=== PATIENT | male | born 1950 | race Asian ===

== ENCOUNTER 2018-12-03 12:46 | Emergency (ER) | payer OTHER ==
[~2018-12-03] VITALS: Ht 172.7 cm; Wt 77.1 kg
[~2018-12-03 12:46] MED LIST: CARVEDIOL PO; CLOP75TA2 PO; GLU850 PO; GLYB5TAB4 PO; LISI10TA5 PO; PARO40TA PO; SIMV40TA5 PO; SITA100T11 PO
[2018-12-03 13:22] VITALS: BP_SYST 178
[2018-12-03] MEDS ORDERED: LORazepam 2 MG/ML VIAL IM ONE (14:30)
[2018-12-03] MEDS ORDERED: LORazepam 2 MG/ML VIAL ONE (14:40)
[2018-12-03 15:07] VITALS: BP_SYST 146
== END 2018-12-03 15:07 | disposition home or self-care (01) ==
LOC: SED 12:46
DX: F41.9 Anxiety disorder, unspecified (principal); I10 Essential (primary) hypertension; E11.9 Type 2 diabetes mellitus without complications; Z79.84 Long term (current) use of oral hypoglycemic drugs; Z79.899 Other long term (current) drug therapy
CPT/HCPCS: 96372; 99284; J2060

== ENCOUNTER 2023-07-21 09:51 | Emergency (ER) | payer OTHER ==
[~2023-07-21] VITALS: Ht 172.7 cm; Wt 69.4 kg
[2023-07-21 09:51] VITALS: BP_SYST 152; PULSE 66; RESP 18; TEMP 97.2; O2SAT 97
[~2023-07-21 09:51] MED LIST changes: +LISI10TA29 PO; -LISI10TA5 PO; +PARO-148 PO; -PARO40TA PO; +SIMV-46 PO; -SIMV40TA5 PO
[2023-07-21] MEDS: HYDROcodone/ACETAMIN 5-325 MG TAB (NORCO/ VICODIN) PO ONE (10:16)
[2023-07-21] MEDS ORDERED: ZAN4 PO (11:56)
[2023-07-21] MEDS ORDERED: NAPR-688 PO (11:56)
[2023-07-21 16:45] VITALS: BP_SYST 152; PULSE 66; RESP 18; TEMP 97.2; O2SAT 97
== END 2023-07-21 12:10 | disposition home or self-care (01) ==
LOC: SED 09:51
DX: M54.16 Radiculopathy, lumbar region (principal); E11.9 Type 2 diabetes mellitus without complications; I10 Essential (primary) hypertension; F41.9 Anxiety disorder, unspecified
CPT/HCPCS: 72100; 99283

== ENCOUNTER 2023-08-28 10:08 | Emergency (ER) | payer OTHER ==
[~2023-08-28] VITALS: Ht 172.7 cm; Wt 70.3 kg
[~2023-08-28 10:08] MED LIST changes: +HYDR-3917 PO; +IBUP-1969 PO; +NAPR-688 PO; +ZAN4 PO
[2023-08-28 10:32] VITALS: BP_SYST 143; PULSE 63; RESP 16; TEMP 97.4; O2SAT 97
[2023-08-28] MEDS ORDERED: IBUP-1971 PO (10:39)
[2023-08-28] MEDS: KETOROLAC TROMETHAMINE 60 MG/2 ML VIAL IM ONE (10:48)
[2023-08-28] MEDS: HYDROcodone/ACETAMIN 10-325 MG TAB PO ONE (10:50)
[2023-08-28 10:58] VITALS: BP_SYST 143; PULSE 65; RESP 16; TEMP 97.4; O2SAT 97
== END 2023-08-28 10:58 | disposition home or self-care (01) ==
LOC: SED 10:08
DX: M54.50 Low back pain, unspecified (principal); G89.29 Other chronic pain; E11.9 Type 2 diabetes mellitus without complications; I10 Essential (primary) hypertension; Z88.8 Allergy status to other drugs, medicaments and biological substances
CPT/HCPCS: 99283; 96372; J1885

== ENCOUNTER 2023-11-28 15:16 | Emergency (ER) | payer OTHER ==
[~2023-11-28] VITALS: Ht 170.2 cm; Wt 69.4 kg
[~2023-11-28 15:16] MED LIST changes: +IBUP-1971 PO
[2023-11-28 16:03] VITALS: BP_SYST 132; PULSE 61; RESP 20; TEMP 97.8; O2SAT 97
[2023-11-28] MEDS ORDERED: AUG875 PO (17:03)
== END 2023-11-28 17:30 | disposition home or self-care (01) ==
LOC: SED 15:16
DX: J32.3 Chronic sphenoidal sinusitis (principal); E11.9 Type 2 diabetes mellitus without complications; I10 Essential (primary) hypertension; Z88.8 Allergy status to other drugs, medicaments and biological substances
CPT/HCPCS: 70450-TC; 99284